=== PATIENT | female | born 1970 ===

== ENCOUNTER → 2023-02-18 10:06 | Outpatient (BNVA) | payer OTHER, SELFPAY | PROVIDERS: Visit Provider Physician Assistant ==

== ENCOUNTER → 2023-02-28 12:51 | Outpatient (BNVA) | payer OTHER, SELFPAY | PROVIDERS: PCP Family Medicine; Visit Provider Physician Assistant | DX: E66.9 Obesity, unspecified (principal); Z68.36 Body mass index [BMI] 36.0-36.9, adult; Z98.84 Bariatric surgery status | CPT/HCPCS: 99202 ==

== ENCOUNTER 2024-01-14 09:04 | Outpatient (AMB) | payer OTHER, SELFPAY ==
--- NOTE | 2024-01-14 10:55 | MHC.OFFVISWM ---
Intake VS Expanded 01/14/24 11:04 Height 5 ft 6 in Weight 234 lb BMI 37.8 Intake Visit Reasons: TV Revision SWL BMI 36.8 Allergies No Known Allergies Allergy (Verified 01/14/24 10:55) Medication List - Last Reconciled 01/14/24 by Nba Hayes MD HPI TV Revision SWL BMI 36.8 HPI Details Start time: 10.47am, End time: 11.47am ?I spent 50 minutes speaking with the patient on the phone plus an additional 10 minutes reviewing and updating records for a total of 60 minutes HPI Comments History of Present Illness Details Previous weight loss efforts: lap band ([id number] weight: 234lbs, lowest weight: 200lbs, had to remove it because of intolerance) Wakes up: 4.40am, sleeps: 9pm Breakfast: 9am (cereal and banana, or omelette Lunch: skips Dinner: 6pm (chicken salad, pizza) Snacks: 12pm (cookies, chips, crackers), 3.30pm (candy), 7pm (ice cream) Exercise: has a stationary bike Fluids: Coffee 1cup/day (creamer), tea/soda: none, juice: zero calorie juice, ETOH: none PFSH Medical History (Updated 01/14/24 @ 11:05 by Nba Hayes MD) Sleep apnea Surgical History (Updated 02/28/23 @ 13:03 by Marci Hopkins PA-C) Hx of adenoidectomy Hx of tonsillectomy Hx of unilateral oophorectomy History of removal of laparoscopic gastric banding device Hx of laparoscopic gastric banding Family History Mother Hypertension Diabetes High cholesterol Father Diabetes Brother Diabetes Brother No problems noted. Brother No problems noted. Brother No problems noted. Sister No problems noted. Sister No problems noted. Sister No problems noted. Son No problems noted. Daughter No problems noted. Social History Alcohol intake: never Patient Tobacco Use Status: Never used Tobacco Assessment & Plan Assessment & Plan (1) Obesity: Code(s): E66.9 - Obesity, unspecified Qualifiers: Obesity type: due to excess calories Obesity classification: adult class 2 (BMI 35 - 39.9) Serious obesity comorbidity presence: with serious comorbidity Body mass index: BMI 37.0-37.9 Qualified Code(s): E66.01 - Morbid (severe) obesity due to excess calories; Z68.37 - Body mass index [BMI] 37.0-37.9, adult Plan: 1.? Plan for lap sleeve gastrectomy. If diaphragmatic or ventral hernias are present at time of surgery, these will be repaired laparoscopically as well. Risks and complications were discussed in detail including possible conversion to an open procedure, anastomotic leak, bleeding requiring transfusion, small bowel obstruction, , DVT and pulmonary embolism, cardiac, or pulmonary complications, as buttermaker complications such as anastomotic ulcer, insufficient weight loss and vitamin deficiencies. I emphasized the importance of close follow-up, adherence to instructions and good communication. 2. Nutritional counseling. Start with one Isopure INFUSIONS protein (buy at [employer], [employer], [employer], [employer]) shake (HALF scoop in 8oz water) at 6am-8am, 1 protein bar (Zone Perfect protein bars, buy at [employer], [employer], [employer], or [employer]) at 9am-11am, another Isopure INFUSIONS shake (HALF scoop in 8oz water) at 12pm-2pm, another Zone Perfect protein bar at 3pm-5pm, dinner at 6pm (8 forks of protein and 8 forks of salad/vegetables) and one more protein bar after dinner at 8pm-10pm. So you do 2 protein shakes, 3 protein bars and one meal per day. Meal to include lean meat (beef, fish, pork, turkey, chicken), or ethiopian yogurt, or egg whites, or beans with a salad with olive oil and fruits (berries, pears, apples, kiwi). Avoid salt, breads, potatoes, rice, pasta, desserts. 3. Each shake would be drunk slowly, like coffee in a period of 2 hours. 4. Cut each bar in 4 pieces and eat each piece in 30min ?to make each bar last 2 hours. 5. I emphasized the importance of measuring accurately the food portion and measure it when serving the food in plate 6. The meal portions include 8 full-size forks of meat and 8 full-size forks of salad. You always eat the meat portion but you can replace up to 4 forks for salad/vegetables with rice, potatoes or pasta, or a fruit ?if you like. The less you do it the better weight loss will be. 7. One full-size fork is what it can be scooped on the fork without falling aside and not what can be bit with the fork. Use regular forks like those you find in a typical restaurant. 8.? Please send me weight measurements as soon as possible and then once a week. Always include your diet and exercise plan. 9. Start stationary bike at a resistance level of 4.0 Increase level by 1.0 every 3 min to a max level of 10.0. Stay at this level for 3 min and then return to level 4.0 and repeat same steps until 300 calories are burned. Goal is to burn 2000 calories per week on exercise, which means either 300 calories daily, or 400 calories 5 days per week, or 500 calories 4 days per week, or 650 calories 3 days per week. 10.?If you still have your period, it is important of avoiding and for at least 18 months postoperatively and has been discussed at the infosession. 11. Goal is to lose at least 1.5-2lbs per week 12. Goal to lose 10% of your weight before surgery, which is about 22lbs. Ultimate weight goal: 204lbs before surgery 13. Please follow the diet plan exactly without any change. If you don't like something about the plan or you feel hungry you need to communicate with me so I can help you revise the plan. You should not change the plan yourself. Orders: Orders Hemoglobin A1c Today E66.9 - Obesity, unspecified, G47.30 - Sleep apnea, unspecified, Z68.37 - Body mass index [BMI] 37.0-37.9, adult H Pylori Breath Test Today E66.9 - Obesity, unspecified, G47.30 - Sleep apnea, unspecified, Z68.37 - Body mass index [BMI] 37.0-37.9, adult Complete Blood Count Auto Diff Today E66.9 - Obesity, unspecified, G47.30 - Sleep apnea, unspecified, Z68.37 - Body mass index [BMI] 37.0-37.9, adult IRON PROFILE Today E66.9 - Obesity, unspecified, G47.30 - Sleep apnea, unspecified, Z68.37 - Body mass index [BMI] 37.0-37.9, adult C Reactive Protein Today E66.9 - Obesity, unspecified, G47.30 - Sleep apnea, unspecified, Z68.37 - Body mass index [BMI] 37.0-37.9, adult Vitamin B1 Today E66.9 - Obesity, unspecified, G47.30 - Sleep apnea, unspecified, Z68.37 - Body mass index [BMI] 37.0-37.9, adult Vitamin A Today E66.9 - Obesity, unspecified, G47.30 - Sleep apnea, unspecified, Z68.37 - Body mass index [BMI] 37.0-37.9, adult Vitamin D 25-OH Total Today E66.9 - Obesity, unspecified, G47.30 - Sleep apnea, unspecified, Z68.37 - Body mass index [BMI] 37.0-37.9, adult US abdomen comp w elastography Today E66.9 - Obesity, unspecified, G47.30 - Sleep apnea, unspecified, Z68.37 - Body mass index [BMI] 37.0-37.9, adult home sleep study Today E66.9 - Obesity, unspecified, G47.30 - Sleep apnea, unspecified, Z68.37 - Body mass index [BMI] 37.0-37.9, adult Insulin Today E66.9 - Obesity, unspecified, G47.30 - Sleep apnea, unspecified, Z68.37 - Body mass index [BMI] 37.0-37.9, adult Lipid Panel Today E66.9 - Obesity, unspecified, G47.30 - Sleep apnea, unspecified, Z68.37 - Body mass index [BMI] 37.0-37.9, adult Comprehensive Met. Panel Today E66.9 - Obesity, unspecified, G47.30 - Sleep apnea, unspecified, Z68.37 - Body mass index [BMI] 37.0-37.9, adult Vitamin B12 and Folate Today E66.9 - Obesity, unspecified, G47.30 - Sleep apnea, unspecified, Z68.37 - Body mass index [BMI] 37.0-37.9, adult Zinc Today E66.9 - Obesity, unspecified, G47.30 - Sleep apnea, unspecified, Z68.37 - Body mass index [BMI] 37.0-37.9, adult TSH reflex Free T4 Today E66.9 - Obesity, unspecified, G47.30 - Sleep apnea, unspecified, Z68.37 - Body mass index [BMI] 37.0-37.9, adult Ferritin Today E66.9 - Obesity, unspecified, G47.30 - Sleep apnea, unspecified, Z68.37 - Body mass index [BMI] 37.0-37.9, adult XR chest 2V Today E66.9 - Obesity, unspecified, G47.30 - Sleep apnea, unspecified, Z68.37 - Body mass index [BMI] 37.0-37.9, adult ECG 12 lead EKG Today E66.9 - Obesity, unspecified, G47.30 - Sleep apnea, unspecified, Z68.37 - Body mass index [BMI] 37.0-37.9, adult FL upper GI w air Today E66.9 - Obesity, unspecified, G47.30 - Sleep apnea, unspecified, Z68.37 - Body mass index [BMI] 37.0-37.9, adult Referrals Nutrition/Dietitian Referral E66.9 - Obesity, unspecified, G47.30 - Sleep apnea, unspecified, Z68.37 - Body mass index [BMI] 37.0-37.9, adult Behavioral Health Referral E66.9 - Obesity, unspecified, G47.30 - Sleep apnea, unspecified, Z68.37 - Body mass index [BMI] 37.0-37.9, adult Telehealth Telehealth Location of provider rendering services: practice address Location of patient: address on file Patient Identification confirmed using: Name, : Yes Telehealth method: voice only Patient verbally consented to treatment: Yes Patient verbally consented to billing insurance company: Yes Patient informed of any privacy concerns related to visit: Yes Minutes spent on Phone/Video with Pt.: 60 Coding Level of Care Code Tele [facility] Pt Level 5 (20412) Diagnoses Class 2 severe obesity due to excess calories with serious comorbidity and body mass index (BMI) of 37.0 to 37.9 in adult E66.01; Z68.37 Obesity type: due to excess calories Obesity classification: adult class 2 (BMI 35 - 39.9) Serious obesity comorbidity presence: with serious comorbidity Body mass index: BMI 37.0-37.9 Time Spent (min) 60
[2024-01-14 11:04] VITALS: BMI 37.8
== END 2024-01-14 11:48 | disposition home or self-care (01) ==
LOC: HO.HBS 09:04
PROVIDERS: PCP Family Medicine; Visit Provider Surgery
DX: E66.01 Morbid (severe) obesity due to excess calories (principal); Z68.37 Body mass index [BMI] 37.0-37.9, adult
CPT/HCPCS: 99205

== ENCOUNTER → 2024-01-14 09:04 | Outpatient (BNVA) | payer OTHER, SELFPAY | PROVIDERS: PCP Family Medicine; Visit Provider Surgery ==

== ENCOUNTER 2024-01-15 09:46 | Outpatient (REF) | payer OTHER, SELFPAY ==
--- NOTE | ~2024-01-15 | XR_ITS ---
EXAMINATION: XR CHEST CLINICAL INFORMATION: Obesity. COMPARISON: None available. TECHNIQUE: 2 views of the chest were obtained. FINDINGS: There is no gross pneumothorax. Heart size is normal. Lung volumes are low. No pleural effusion. No focal consolidation to suggest pneumonia. Mild degenerative changes in the thoracic spine. XR/XR chest 2V IMPRESSION: No evidence of pneumonia.
--- NOTE | 2024-01-15 09:57 | ECG_ITS ---
Test Reason : OBESITY Blood Pressure : / mmHG Vent. Rate : 060 BPM Atrial Rate : 060 BPM P-R Int : 124 ms QRS Dur : 082 ms QT Int : 432 ms P-R-T Axes : 072 003 007 degrees QTc Int : 432 ms Normal sinus rhythm Minimal voltage criteria for LVH, may be normal variant ( R in aVL ) Borderline ECG No previous ECGs available Referred By: Nba Hayes Electronically Signed By:YONATAN STARK MD
[2024-01-15 10:20] LABS: MANUAL DIFF FLAG NO
[2024-01-15 10:31] LABS: Basophils Percent Auto 0.7 % (0-2); Eosinophils Absolute Auto 0.3 X10*3/uL (0.0-0.4); Eosinophils Percent Auto 5.9 % (0-4); Hematocrit 43.7 % (37.0-47.0); Hemoglobin 14.4 g/dl (12.0-16.0); Imm Gran Abs Auto 0.02 X10*3/uL (0.00-0.03); Imm Gran Pct Auto 0.3 % (0.0-0.4); Lymphocytes Absolute Auto 1.9 X10*3/uL (1.2-4.9); Lymphocytes Percent Auto 33.4 % (20-40); Mean Corpuscular Hemoglobin 30.5 pg (27.0-33.0); Mean Corpuscular Volume 92.6 fL (80.0-98.0); Mean Platelet Volume 10.6 fL (9.4-12.3); Monocytes Absolute Auto 0.5 X10*3/uL (0.1-1.2); Monocytes Percent Auto 7.8 % (2-11); Neutrophils Percent Auto 51.9 % (45-73); Platelet Count 289 X10*3/uL (160-400); Red Blood Count 4.72 X10*6/uL (4.20-5.50); Red Cell Distribution Width 12.5 % (11.0-16.0); White Blood Count 5.8 X10*3/uL (4.8-10.8)
[2024-01-15 11:15] LABS: Alanine Aminotransferase 23 U/L (0-31); Albumin Level 4.2 g/dL (3.5-5.0); Alkaline Phosphatase 64 U/L (39-117); Anion Gap 10 (12-20); Aspartate Amino Transferase 18 U/L (5-31); Bilirubin Total 0.5 mg/dL (0.0-1.0); Blood Urea Nitrogen 12 mg/dL (9-16); C Reactive Protein 0.31 mg/dL (< or = 0.50); Calcium 9.6 mg/dL (8.4-10.2); Carbon Dioxide 29 mmol/L (22-29); Chloride 107 mmol/L (96-108); Cholesterol 226 mg/dL (<200); Estimated Glomerular Filt Rate > 60; Glucose Random 101 mg/dL (60-115); HDL Cholesterol 60 mg/dL (>40); Iron 99 mcg/dL (30-160); LDL Cholesterol Calculated 137 mg/dL (<100); Percent Iron Saturation 29 % (15-50); Potassium 4.2 mmol/L (3.3-5.1); Sodium 142 mmol/L (135-145); Total Iron Binding Capacity 341 mcg/dL (228-428); Total Protein 7.5 g/dL (6.5-8.0); Triglycerides 145 mg/dL (<150); Unsaturated Iron Binding 242 ug/dL
[2024-01-15 11:19] LABS: Estimated Average Glucose 114 mg/dL; Hemoglobin A1c % 5.6 % (<6.0)
[2024-01-15 11:42] LABS: Ferritin 27 ng/mL (10-250); Insulin 12 uU/mL (2-29); TSH reflex Free T4 2.11 uIU/mL (0.32-4.0); Vitamin D 25-OH Total 16.7 ng/mL (>30)
[2024-01-15 12:29] LABS: Folate 10.9 ng/mL (> or = 4.0); Vitamin B12 670 pg/mL (200-900)
[2024-01-17 18:07] LABS: Zinc 80 mcg/dL (60-130)
[2024-01-21 01:43] LABS: Vitamin A 56 mcg/dL (38-98)
[2024-01-21 15:38] LABS: Vitamin B1 13 nmol/L (8-30)
== END 2024-01-15 09:47 | disposition home or self-care (01) ==
LOC: HO.XRAY 09:46
PROVIDERS: PCP Family Medicine; Visit Provider Surgery
DX: E66.9 Obesity, unspecified (principal); Z68.37 Body mass index [BMI] 37.0-37.9, adult; G47.30 Sleep apnea, unspecified
CPT/HCPCS: 36415; 71046; 80053; 80061; 82306; 82607; 82728; 82746; 83036; 83525; 83540; 84425; 84443; 84590; 84630; 85025; 86140; 93005

== ENCOUNTER → 2024-01-15 09:57 | Outpatient (BNV) | payer OTHER, SELFPAY | PROVIDERS: PCP Family Medicine; Visit Provider Internal Medicine Cardiovascular Disease | DX: E66.9 Obesity, unspecified (principal); R94.31 Abnormal electrocardiogram [ECG] [EKG] | CPT/HCPCS: 93010 ==

== ENCOUNTER → 2024-01-16 09:37 | Outpatient (BNVA) | payer OTHER, SELFPAY | PROVIDERS: PCP Family Medicine; Visit Provider Physician Assistant Surgical ==

== ENCOUNTER 2024-01-19 10:22 | Outpatient (AMB) | payer OTHER, SELFPAY ==
--- NOTE | 2024-01-19 10:20 | MHC.WMTHER ---
Intake Intake Visit Reasons: VIDEO Intake Allergies No Known Allergies Allergy (Verified 01/14/24 10:55) [facility] Medical History (Updated 01/19/24 @ 10:43 by Kathy Vega) Sleep apnea Surgical History (Updated 02/28/23 @ 13:03 by Marci Hopkins PA-C) Hx of adenoidectomy Hx of tonsillectomy Hx of unilateral oophorectomy History of removal of laparoscopic gastric banding device Hx of laparoscopic gastric banding Family History Mother Hypertension Diabetes High cholesterol Father Diabetes Brother Diabetes Brother No problems noted. Brother No problems noted. Brother No problems noted. Sister No problems noted. Sister No problems noted. Sister No problems noted. Son No problems noted. Daughter No problems noted. Social History Alcohol intake: never Patient Tobacco Use Status: Never used Tobacco Behavioral Health Assessment Weight Management Therapy Therapy Notes Details Pt is looking to have weight loss surgery to help improve her health and quality of life. Pt is not in therapy and has never been. She has no mental health history and no history of problems with drugs or alcohol. Presenting Concerns Referral Source provider Reason for referral weight loss surgery evaluation Precipitating Event obesity Living Situation Current Living Situation Own At risk of losing current housing? No Satisfied with current living situation? Yes Comments Pt lives with her and two children. Food/Weight/Diet Expectations of change weight loss and maintenance History/Relationship with food Pt stated that she would eat eggs, wallace, toast, sedentary job, napping, snacking throughout the day, skipping lunch, then would eat large salad with crispy chicken on it and lots of other toppings then snack into the night. Weekends would be take out, pizza, Spanish food, [place] food etc, no discipline. History/Relationship with weight Patient reported that she was thin until she had her daughter 20 years ago. Her weight would fluctuate since then. History/Relationship with dieting 2010 lap band and removed in 2017 lost 35-40lbs, WW, Ozempic Binge Eating Do you frequently eat large amounts of food in short periods of time, not feeling physically hungry? Yes Do you feel out of control when you eat a large amount of food in a short period of time? No Do you eat large amounts of food rapidly and typically alone? No Night Eating Do you wake up at least once during the night to eat? No If you wake up in the night, do you find that it is necessary to eat something in order to fall back asleep? No Do you have little or no appetite in the morning and feel very hungry in the evening, often overeating between dinner and when you go to bed? No Social History Family history and relationship She has 4 brothers and one sister. Two brothers have had weight loss surgery. Pt is and has two children. Parental/Familial geodetic technician obligations family Developmental history and status no issues reported Social support , daughter, niece (neighbor), brother is also having surgery with the program at [facility]. Buddhism/Spirituality Denominational Cultural/Ethnic information Legal Involvement and History Current or historical involvement with the legal system? none Education Highest grade completed 10th grade Preferred learning style Auditory, Verbal, Written, Learn by doing and Visual Currently enrolled in educational program? No Interested in further educational program? 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 No Meaningful activities housework, outdoor gardening Financial Situation Describe current financial situation Comfortable Financial assistance? None Service Service? No Mental Health and Addiction Treatment Current/Past substance abuse? No Current/Past addictive behavior concerns? No Medical and Physical Health Summary Physical exam in the last year? Yes Pain Screening Current pain? No Pain in the last few months? No Medications Is the patient compliant with medications? Yes Does the patient have Go Guardian in place? Not applicable Does the patient use complimentary health approaches? No Trauma/Abuse History History of trauma? No Questionnaires PHQ-9 Over the last 2 weeks, how often have you been bothered by any of the following problems? 1. Little interest or pleasure in doing things: several days 2. Feeling down, depressed, or hopeless: not at all 3. Trouble falling or staying asleep, or sleeping too much: nearly every day 4. Feeling tired or having little energy: nearly every day 5. Poor appetite or overeating: nearly every day 6. Feeling bad about yourself - or that you are a failure or have let yourself or your family down: not at all 7. Trouble concentrating on things, such as reading the newspaper or watching television: not at all 8. Moving or speaking so slowly that other people could have noticed. Or the opposite - being so fidgety or restless that you have been moving around a lot more than usual: not at all 9. Thoughts that you would be better off or of hurting yourself in some way: not at all Total score: 10 Source: Developed by Drs. Anthony Briggs, aMricarmen Carroll, Ruddy Montague and colleagues, with an educational karthik from [employer]. Binge Eating Scale Group 1 A. I don't feel self-conscious about my wt. or body size when I'm with others. B. I feel concerned about how I look to others, but it normally does not make me fell disappointed with myself C. I do get self-conscious about my appearance and wt. which makes me feel disappointed in myself. D. I feel very self-conscious about my wt. and frequently I feel intense shame and disgust for myself. I try to avoid social contacts because of my self-consciousness. Response Group 1: C Group 2 A. I don't have any difficulty eating slowly in the proper manner. B. Although I seem to gobble down foods, I don't end up feeling stuffed because of eating to much. C. At times, I tend to eat quickly and then, I feel uncomfortably full afterwards. D. I have the habit of bolting down my food, without really chewing it. When this happens I usually feel uncomfortably stuffed because I've eaten to much. Response Group 2: A Group 3 A. I feel capable to control my eating urges when I want to. B. I feel like I have failed to control my eating more than the average person. C. I feel utterly helpless when it comes to feeling in control of my eating urges. D. Because I feel so helpless about controlling my eating I have become very desperate about trying to get control. Response Group 3: B Group 4 A. I don't have the habit of eating when I'm bored. B. I sometimes eat when I'm bored, but often I'm able to get busy and get my mind off food. C. I have a regular habit of eating when I'm bored, but occasionally, I can use some other activity to get my mind off eating. D. I have a strong habit of eating when I'm bored. Nothing seems to help me breath the habit. Response Group 4: C Group 5 A. I'm usually physically hungry when I eat something. B. Occasionally, I eat something on impulse even though I really am not hungry. C. I have the regular habit of eating foods, that I might not really enjoy, to satisfy a hungry feeling even though physically, I don't need the food. D. Although I'm not physically hungry, I get a hungry feeling in my mouth that only seems to be satisfied when I eat a food, like sandwich, that fills my mouth. Sometimes, when I eat the food to satisfy my mouth hunger, I then spit the food out so I won't gain weight. Response Group 5: B Group 6 A. I don't feel any guilt or self-hate after I overeat. B. After I overeat, occasionally I feel guilt or self-hate. C. Almost all the time I experience strong guilt or self-hate after I overeat. Response Group 6: B Group 7 A. I don't lose total control of my eating when dieting even after periods when I overeat. B. Sometimes when I eat a forbidden food on a diet, I feel like I blew it and eat even more. C. Frequently, I have the habit of saying to myself, I've blown it now, why not go all the way, when I overeat on a diet. When that happens I eat more. D. I have a regular habit of starting a strict diets for myself but I break the diets by going on an eating binge. My life seems to be either a feast or famine. Response Group 7: B Group 8 A. I rarely eat so much food that I feel uncomfortably stuffed afterwards. B. Usually about once a month, I each such a quantity of food, I end up feeling very stuffed. C. I have regular periods during the month when I eat large amounts of food, either at mealtime or at snacks. D. I eat so much food that I regularly feel quite uncomfortable after eating and sometimes a bit nauseous. Response Group 8: B Group 9 A. My level of calorie intake does not go up very high or go down very low on a regular basis. B. Sometimes after I overeat, I will try to reduce my caloric intake to almost nothing to compensate for the excess calories I've eaten. C. I have a regular habit of overeating during the night. It seems that my routine is not to be hungry in the morning but overeat in the evening. D. In my adult years, I have had week-long periods where I practically starve myself. This follows periods when I overeat. It seems I live a life of either feast or famine. Response Group 9: A Group 10 A. I usually am able to stop eating when I want to. I know when enough is enough. B. Every so often, I experience a compulsion to eat which I can't seem to control. C. Frequently, I experience strong urges to eat which I seem unable to control, but at other times I can control my eating urges. D. I feel incapable of controlling urges to eat. I have a fear of not being able to stop eating voluntarily. Response Group 10: A Group 11 A. I don't have any problem stopping eating when I feel full. B. I usually can stop eating when I feel full but occasionally overeat leaving me feeling uncomfortably stuffed. C. I have a problem stopping eating once I start and usually I feel uncomfortably stuffed after I eat a meal. D. Because I have a problem not being able to stop eating when I want, I sometimes have to induce vomiting to relieve my stuffed feeling. Response Group 11: B Group 12 A. I seem to eat just as much when I'm with others, Family social gatherings as when I'm by myself. B. Sometimes, when I'm with other persons, I don't eat as much as I want to eat because I'm self-conscious about my eating. C. Frequently, I eat only a small amount of food when others are present, because I'm very embarrassed about my eating. D. I feel so ashamed about overeating that I pick times to overeat when I know no one will see me. I feel like a closet eater. Response Group 12: A Group 13 A. I eat three meals a day with only an occasional between meal snack. B. I eat 3 meals a day, but I also normally snack between meals. C. When I am snacking heavily, I get in the habit of skipping regular meals. D. There are regular periods when I seem to be continually eating, with no planned meals. Response Group 13: C Group 14 A. I don't think much about trying to control unwanted eating urges. B. At least some of the time, I feel my thoughts are pre-occupied with trying to control my eating urges. C. I feel that frequently I spend much time thinking about how much I ate or about trying not to eat anymore. D. It seems to me that most of my waking hours are pre-occupied by thoughts about eating or not eating. I feel like I'm constantly struggling not to eat. Response Group 14: A Group 15 A. I don't think about food a great deal. B. I have strong craving for food but they last only for brief periods of time. C. I have days when I can't seem to think about anything else but food. D. Most of my days seem to be pre-occupied with thoughts about food. I feel like I live to eat. Response Group 15: A Group 16 A. I usually know whether or not I'm physically hungry. I take the right portion of food to satisfy me. B. Occasionally, I feel uncertain about knowing whether or not I'm physically hungry. A these times it's hard to know how much food I should take to satisfy me. C. Even though I might know how many calories I should eat, I don't have any idea what is a normal amount of food for me. Response Group 16: A Binge Eating Score: 12 Score less than 17 Minimal Risk Score between 18-26 Moderate Risk Score between 27-46 High Risk Assessment & Plan Assessment & Plan (1) Adjustment disorder, unspecified: Code(s): F43.20 - Adjustment disorder, unspecified (2) Obesity: Code(s): E66.9 - Obesity, unspecified Qualifiers: Obesity type: due to excess calories Obesity classification: adult class 2 (BMI 35 - 39.9) Serious obesity comorbidity presence: with serious comorbidity Body mass index: BMI 37.0-37.9 Qualified Code(s): E66.01 - Morbid (severe) obesity due to excess calories; Z68.37 - Body mass index [BMI] 37.0-37.9, adult Plan Patient has no mental health history or serious barriers. She is cleared for surgery when ready. Telehealth Telehealth Location of provider rendering services: practice address Location of patient: address on file Patient Identification confirmed using: Name, : Yes Telehealth method: voice only Patient verbally consented to treatment: Yes Patient verbally consented to billing insurance company: Yes Patient informed of any privacy concerns related to visit: Yes Minutes spent on Phone/Video with Pt.: 45 Coding Level of Care Code Tele Psy Diag Eval (75025) Diagnoses Adjustment disorder, unspecified F43.20 Class 2 severe obesity due to excess calories with serious comorbidity and body mass index (BMI) of 37.0 to 37.9 in adult E66.01; Z68.37 Obesity type: due to excess calories Obesity classification: adult class 2 (BMI 35 - 39.9) Serious obesity comorbidity presence: with serious comorbidity Body mass index: BMI 37.0-37.9 Time Spent (min) 45
== END 2024-01-19 10:54 | disposition home or self-care (01) ==
LOC: HO.HBST 10:22
PROVIDERS: PCP Family Medicine; Visit Provider Counselor Mental Health
DX: F43.20 Adjustment disorder, unspecified (principal); E66.01 Morbid (severe) obesity due to excess calories; Z68.37 Body mass index [BMI] 37.0-37.9, adult
CPT/HCPCS: 90791

== ENCOUNTER → 2024-01-19 10:22 | Outpatient (BNVA) | payer OTHER, SELFPAY | PROVIDERS: PCP Family Medicine; Visit Provider Counselor Mental Health ==

== ENCOUNTER → 2024-01-20 09:51 | Outpatient (REF) | payer OTHER, SELFPAY | LOC: HO.SL 09:51 | PROVIDERS: PCP Family Medicine; Visit Provider Surgery | DX: E66.9 Obesity, unspecified (principal); G47.33 Obstructive sleep apnea (adult) (pediatric) | CPT/HCPCS: 95806 ==

== ENCOUNTER → 2024-01-20 10:12 | Outpatient (BNV) | payer OTHER, SELFPAY | PROVIDERS: PCP Family Medicine; Visit Provider Internal Medicine | DX: G47.33 Obstructive sleep apnea (adult) (pediatric) (principal) | CPT/HCPCS: 95806 ==

== ENCOUNTER 2024-01-27 10:48 | Outpatient (AMB) | payer OTHER, SELFPAY ==
--- NOTE | 2024-01-27 10:14 | MHC.AMNUTRGE ---
Intake Intake Visit Reasons: VIDEO Initial Nutrition [facility] [place] Required: No Allergies No Known Allergies Allergy (Verified 01/14/24 10:55) HPI Nutrition Presentation Details Band 2019 [facility], removed 4 years ago by Yluia Reason for consult elevated BMI Diet Assmnt Details She reports her nutrition plan from Dr. Hayes is going well. She does not ahve any questions or concerns today. Her brother just had LSG with us last week. Has an older brother who had bariatric surgery at [facility]. She reports its been very helpful to watch their journeys and experiences. Exercise: Has been working out at night in the evenings right before dinner. [facility] online classes: completed, scored well, reviewed today Dietary counseling reduction Who buys your food self Who prepares/cooks your food self Meal frequency regular: lunch Lifestyle Eating out 1-3 times/week (mainly weekends) Food frequency Fruit: daily, Vegetables: daily, Grains/pasta/breads/cereal (carbs): daily, Meats/poultry/fish (protein): daily, Restaurants/fast foods: several times weekly, Water: daily, Soda: daily (fresca), Juice: daily and Coffee: daily Diagnosis Nutrition problem #1 overweight/obesity As related to (etiology) #1 excess energy intake and physical inactivity As evidenced by (sign/symptom) #1 high BMI Monitoring/Goals Nutrition problem monitoring total energy intake, level of knowledge/skill, total PRO intake, total CHO intake and weight Outcome progress progressing Learning/Education Readiness to learn good Stages of change action Educational materials provided Yes Most Recent Diabetes Results: Cholesterol 226 mg/dL (<200) H 01/15/24 HDL Cholesterol 60 mg/dL (>40) 01/15/24 Triglycerides 145 mg/dL (<150) 01/15/24 Creatinine 0.96 mg/dL (0.5-1.4) 01/15/24 Blood Urea Nitrogen 12 mg/dL (9-16) 01/15/24 Sodium 142 mmol/L (135-145) 01/15/24 Potassium 4.2 mmol/L (3.3-5.1) 01/15/24 Chloride 107 mmol/L (96-108) 01/15/24 Carbon Dioxide 29 mmol/L (22-29) 01/15/24 Calcium 9.6 mg/dL (8.4-10.2) 01/15/24 AST 18 U/L (5-31) 01/15/24 ALT 23 U/L (0-31) 01/15/24 Total Protein 7.5 g/dL (6.5-8.0) 01/15/24 Albumin 4.2 g/dL (3.5-5.0) 01/15/24 PFSH Medical History (Updated 01/19/24 @ 20:23 by Nba Hayes MD) Sleep apnea Surgical History (Updated 02/28/23 @ 13:03 by Marci Hopkins PA-C) Hx of adenoidectomy Hx of tonsillectomy Hx of unilateral oophorectomy History of removal of laparoscopic gastric banding device Hx of laparoscopic gastric banding Family History Mother Hypertension Diabetes High cholesterol Father Diabetes Brother Diabetes Brother No problems noted. Brother No problems noted. Brother No problems noted. Sister No problems noted. Sister No problems noted. Sister No problems noted. Son No problems noted. Daughter No problems noted. Social History Alcohol intake: never Patient Tobacco Use Status: Never used Tobacco Use of substances other than those prescribed or required for medical reasons: No Are you DNR?: No Advance Directives: No Advance Directives Information Provided: Yes Assessment & Plan Assessment & Plan (1) BMI 37.0-37.9, adult: Code(s): Z68.37 - Body mass index [BMI] 37.0-37.9, adult Plan Patient is cleared from a nutrition standpoint for bariatric surgery. Educational requirements have been completed. Reviewed vitamin supplementation and commitment to protein shake for several months post surgery. Encouraged communication with office as needed Telehealth Telehealth Location of provider rendering services: practice address Location of patient: address on file Patient Identification confirmed using: Name, : Yes Telehealth method: voice only Patient verbally consented to treatment: Yes Patient verbally consented to billing insurance company: Yes Patient informed of any privacy concerns related to visit: Yes Minutes spent on Phone/Video with Pt.: 30 Coding Level of Care Code Nutr Indiv Intake (15875) Diagnoses BMI 37.0-37.9, adult Z68.37 Time Spent (min) 30
== END 2024-01-27 15:16 | disposition home or self-care (01) ==
LOC: HO.HBS 10:48
PROVIDERS: PCP Family Medicine; Visit Provider Dietitian, Registered
DX: Z68.37 Body mass index [BMI] 37.0-37.9, adult (principal)

== ENCOUNTER → 2024-01-27 10:48 | Outpatient (BNVA) | payer OTHER, SELFPAY | PROVIDERS: PCP Family Medicine; Visit Provider Dietitian, Registered | DX: E66.9 Obesity, unspecified (principal); Z71.3 Dietary counseling and surveillance; Z68.37 Body mass index [BMI] 37.0-37.9, adult | CPT/HCPCS: 97802 ==

== ENCOUNTER 2024-01-28 07:12 | Day surgery (SDC) | payer OTHER, SELFPAY ==
[2024-01-28 10:25] VITALS: BMI 37.6
[2024-01-28 10:30] VITALS: BP 112/61; PULSE 67; RESP 16; TEMP 37.2; O2SAT 97
--- NOTE | 2024-01-28 10:31 | HO.ANESPROP2 ---
[facility] Active Problems Active Problems: All Active Problems (Updated 01/19/24 @ 20:23 by Nba Hayes MD) Vitamin D deficiency (Acute) Adjustment disorder, unspecified (Acute) Sleep apnea (Acute) BMI 37.0-37.9, adult (Acute) History of removal of laparoscopic gastric banding device (Acute) Obesity (Acute) Past Medical History Medical History (Updated 01/19/24 @ 20:23 by Nba Hayes MD) Sleep apnea Family History Family History Mother Hypertension Diabetes High cholesterol Father Diabetes Brother Diabetes Brother No problems noted. Brother No problems noted. Brother No problems noted. Sister No problems noted. Sister No problems noted. Sister No problems noted. Son No problems noted. Daughter No problems noted. Family history of problems with anesthesia: No Surgical History Surgical History (Updated 02/28/23 @ 13:03 by Marci Hopkins PA-C) Hx of adenoidectomy Hx of tonsillectomy Hx of unilateral oophorectomy History of removal of laparoscopic gastric banding device Hx of laparoscopic gastric banding History of Problems with Anesthesia: No Social History Social History Alcohol intake: never Patient Tobacco Use Status: Never used Tobacco Use of substances other than those prescribed or required for medical reasons: No Are you DNR?: No Advance Directives: No Advance Directives Information Provided: Yes Meds Allergies Allergy/AdvReac Type Severity Reaction Status Date / Time No Known Allergies Allergy Verified 01/14/24 10:55 Active Medications: Current Medications Lactated Ringer's (Lr) 1,000 mls @ 80 mls/hr IVCONT .[id number] DARRELL Exam Height,Weight and Vital Signs: Height 5 ft 6 in Weight 105.8 kg Airway Mallampati Class: II TM Dist: >3cm Neck ROM: Full Heart: rrr Lungs: cta Assessment and Plan Assessment Anesthesia Assessment: Anesthesia Plan Discussed and Chart Reviewed Final Anesthetic Review Family History of Problems with Anesthesia: No History of Problems with Anesthesia: No NPO: Yes ASA Class: II Final Preanesthetic Review: No Changes in Pt Med Stat, Meds/Allgs Chart Reviewed and Consent Obtained/Reviewed Patient Risk: Low Procedure Risk: Intermediate Anesthetic Plan Anesthetic Plan: MAC: Disposition: Standard PACU
[2024-01-28] MEDS: Lactated Ringers 1,000 ML 80 ML IVCONT (10:42)
--- NOTE | 2024-01-28 11:02 | HO.ANESPROP2 ---
[facility], [facility] Active Problems Active Problems: All Active Problems (Updated 01/19/24 @ 20:23 by Nba Hayes MD) Vitamin D deficiency (Acute) Adjustment disorder, unspecified (Acute) Sleep apnea (Acute) BMI 37.0-37.9, adult (Acute) History of removal of laparoscopic gastric banding device (Acute) Obesity (Acute) Past Medical History Medical History (Updated 01/19/24 @ 20:23 by Nba Hayes MD) Sleep apnea Family History Family History Mother Hypertension Diabetes High cholesterol Father Diabetes Brother Diabetes Brother No problems noted. Brother No problems noted. Brother No problems noted. Sister No problems noted. Sister No problems noted. Sister No problems noted. Son No problems noted. Daughter No problems noted. Family history of problems with anesthesia: No Surgical History Surgical History (Updated 02/28/23 @ 13:03 by Marci Hopkins PA-C) Hx of adenoidectomy Hx of tonsillectomy Hx of unilateral oophorectomy History of removal of laparoscopic gastric banding device Hx of laparoscopic gastric banding History of Problems with Anesthesia: No Social History Social History Alcohol intake: never Patient Tobacco Use Status: Never used Tobacco Use of substances other than those prescribed or required for medical reasons: No Are you DNR?: No Advance Directives: No Advance Directives Information Provided: Yes Meds Allergies Allergy/AdvReac Type Severity Reaction Status Date / Time No Known Allergies Allergy Verified 01/14/24 10:55 Active Medications: Current Medications Lactated Ringer's (Lr) 1,000 mls @ 80 mls/hr IVCONT .[id number] DARRELL Last Admin: 01/28/24 10:42 Dose: 80 mls/hr Exam Height,Weight and Vital Signs: Height 5 ft 6 in Weight 105.8 kg Last Vital Signs Temp 99.0 F 01/28/24 10:30 Pulse 67 01/28/24 10:30 Resp 16 01/28/24 10:30 BP 112/61 01/28/24 10:30 Pulse Ox 97 01/28/24 10:30 O2 Del Method Room Air 01/28/24 10:30 Airway Mallampati Class: II TM Dist: >3cm Neck ROM: Full Heart: rrr Lungs: cta Assessment and Plan Assessment Anesthesia Assessment: Anesthesia Plan Discussed and Chart Reviewed Final Anesthetic Review Family History of Problems with Anesthesia: No History of Problems with Anesthesia: No NPO: Yes ASA Class: II Final Preanesthetic Review: No Changes in Pt Med Stat, Meds/Allgs Chart Reviewed and Consent Obtained/Reviewed Patient Risk: Low Procedure Risk: Intermediate Anesthetic Plan Anesthetic Plan: MAC: Disposition: Standard PACU
--- NOTE | 2024-01-28 11:26 | MHC.SHP ---
Pre-Procedural Eval Section A - 24 Hr Update-Section A only Date of Service: 01/28/24 The patient is an INPATIENT: No The patient has been examined within 24 hours of the surgical procedure. The History & Physical has been completed within 30 days and I have reviewed it.: Yes Section B - Complete if H&P > 30 days Chief Complaint: Morbid (severe) obesity due to excess calories Details of Present Illness: GERD Relevant Family History (Specify if Yes): No Relevant Social History: None Present Medications: None Medical History: No relevant PMH History of Previous Operations: Relevant previous surgery/procedure and date(s) (lap gastric band and removal) Allergies: Allergies Allergy/AdvReac Type Severity Reaction Status Date / Time No Known Allergies Allergy Verified 01/14/24 10:55 Review of Systems Sugical H&P ROS: Negative: Constitution, Cardiovascular, Respiratory, Neurological, Psychiatric, Hem-Onc, Allergic/Immunologic, Gastrointestinal, Genitourinary, Musculoskeletal, Integumentary, Endocrine and Eyes/Ears/Nose/Throat Exam Surgical H&P Exam: Normal: HEENT, Normal: Heart, Normal: Lungs, Normal: Extremities, Normal: Abdomen, Normal: Skin and Normal: Neurological Plan Diagnosis/Plan: Unchanged (EGD to assess etiology of GERD. Risks of bleeding and perforation were discussed with the patient and she is in agreement with the plan.) I have reviewed the history and physical and performed a pertinent physical examination on my patient. No changes have occurred unless specified. Time Spent With Patient Time: Total time managing care of this patient today ____ minutes.
--- NOTE | 2024-01-28 11:32 | P.BOP_ITS ---
Brief Operative Note Date of Service: 01/28/24 Pre-op diagnosis: GERD Post-op diagnosis: same Procedure: PROCEDURE DATE: 01/28/2024 PREOPERATIVE DIAGNOSIS: GERD POSTOPERATIVE DIAGNOSIS: ?Same as above. 1) moderate-size hiatal hernia PROCEDURE: Iebfaxqo-kjfnlv-eljxvcyvsasm with biopsies Surgeon: ?Floyd Hayes M.D.. Ph.D. Instructional Support Specialist: None ? Anesthesia: IV sedation Estimated blood loss: ?Minimal FINDINGS AND PROCEDURE: ? OPERATIVE INDICATIONS: ?The patient is a 53 year old female known to me who is interested in bariatric surgery. The patient has GERD. Additionally she had a laparoscopic gastric band placed. Based on this information I recommended an upper endoscopy to evaluate the patient's symptoms. Risks and complications of the surgery were discussed with the patient in advance particularly the possibility of perforation or bleeding that may require surgical intervention. The patient understood the risks and was in agreement with the plan. ? PROCEDURE: After informed consent was obtained by the patient, the patient was ?transferred to the Operating Room and was placed in the supine position.? After successful induction of IV sedation, a mouth block was inserted and the patient was placed in the left lateral decubitus position. An upper endoscopy was performed next, the oropharynx and esophagus appeared within the normal limits. There was a moderate-size 4-5cm hiatal hernia. The z-line was smooth. Two biopsies were obtained from the distal esophagus 2-3 cm proximal to the GE junction and two additional biopsies from the GE junction. The stomach was entered and it appeared to be of normal size. There was no gastritis. There was no stricture or ulcer. A biopsy was obtained from the fundus and the antrum. No significant bleeding was noted from any of the biopsy sites. Retroflexion of the scope confirmed the presence of a moderate size diaphragmatic hernia. The scope was then advanced into the duodenum which appeared to be normal as well. At that point the duodenum ?and the stomach were decompressed and the scope was withdrawn from the patient's mouth. The patient extubated and was transferred in stable condition to the Recovery Room for further care. I was present and performed all steps of the procedure. There were no residents to assist with this case. Floyd Hayes M.D., Ph.D. Surgeon: Nba Hayes MD Anesthesia: GETA Was an Instructional Support Specialist used for this Procedure?: No Estimated blood loss (mL): 0 IV fluids (mL): 400 Urine output (mL): 0 (No Chadwick to record output) Pathology: other (1) antrum x1, 2) fundus x1, 3) GE junction x2, 4) distal esophagus x2) Condition: stable Disposition: PACU
[2024-01-28 11:50] VITALS: BP 99/45; PULSE 82; RESP 16; TEMP 37; O2SAT 90
[2024-01-28 12:22] VITALS: BP 118/65; PULSE 67; RESP 18; TEMP 36.7; O2SAT 96
== END 2024-01-28 13:00 | disposition home or self-care (01) ==
PROVIDERS: PCP Family Medicine; Visit Provider Surgery
PROC: 0DJ08ZZ Inspection of Upper Intestinal Tract, Via Natural or Artificial Opening Endoscopic (ICD-10-PCS; CPT 43235; principal; 2024-01-28 11:30)
DX: K21.9 Gastro-esophageal reflux disease without esophagitis (principal); E66.01 Morbid (severe) obesity due to excess calories; Z68.37 Body mass index [BMI] 37.0-37.9, adult; Z98.84 Bariatric surgery status; K44.9 Diaphragmatic hernia without obstruction or gangrene; G47.30 Sleep apnea, unspecified
CPT/HCPCS: 43239; 88305; 88313; 88342; J2704

== ENCOUNTER → 2024-01-28 07:12 | Outpatient (BNV) | payer OTHER, SELFPAY | PROVIDERS: PCP Family Medicine; Visit Provider Surgery | DX: K21.9 Gastro-esophageal reflux disease without esophagitis (principal) | CPT/HCPCS: 43239 ==

== ENCOUNTER 2024-01-30 10:32 | Outpatient (REF) | payer OTHER, SELFPAY ==
--- NOTE | ~2024-01-30 | US_ITS ---
EXAMINATION: US COMPLETE ABDOMEN WITH LIVER ELASTOGRAPHY CLINICAL INFORMATION: Obesity. COMPARISON: None available. TECHNIQUE: Real-time imaging of the abdominal viscera. Noninvasive ultrasound liver fibrosis assessment is performed using Toan ElastPQ point quantification shear wave elastography (2D-SWE) with a C5-2 MHz transducer. Multiple elastography samples are obtained. FINDINGS: PANCREAS: Limited. The visualized pancreatic head and body are normal in appearance. The remainder of the pancreas is obscured from visualization by the overlying bowel gas. ABDOMINAL AORTA: The proximal, middle, and distal aortic segments are normal in caliber. INFERIOR VENA CAVA: Visualized portions are normal. LIVER: The liver demonstrates normal size, contour and increased echogenicity. No focal lesion or intrahepatic biliary duct dilatation. The right lobe measures 15.5 cm in length. The left lobe measures 7.4 cm in length. Portal flow is towards the liver (hepatopetal). Shear wave liver elastography median stiffness is 1.15 m/s (reference: normal median stiffness is 1.3 m/s or less). IQR/median stiffness to assess sampling precision is 0.09 (reference: good quality data set is IQR/median stiffness of 0.15 or less). GALLBLADDER: Normal. The gallbladder is physiologically distended without evidence of stones, sludge, polyps, wall thickening or pericholecystic fluid. COMMON BILE DUCT: Normal in caliber measuring 0.5 cm in diameter. RIGHT KIDNEY: Normal. No hydronephrosis. No renal calculi or focal parenchymal lesions. The kidney measures 10.3 cm in maximum dimension. LEFT KIDNEY: Normal. No hydronephrosis. No renal calculi or focal parenchymal lesions. The kidney measures 10.0 cm in maximum dimension. SPLEEN: Normal. The spleen measures 11.2 cm in maximum dimension. FREE FLUID: None. US/US abdomen comp w elastography IMPRESSION: 1. There is generalized increase in hepatic echotexture, consistent with fatty infiltration or hepatocellular disease. Please correlate clinically. No focal hepatic mass or intrahepatic biliary dilatation is seen. 2. Liver elastography: Measurements are consistent with a high probability of normal liver stiffness. 3. Technically limited ultrasound examination of the pancreas. REFERENCE: Society of Radiologists in Ultrasound Liver Stiffness Thresholds (2020): LIVER STIFFNESS THRESHOLDS: *Liver Stiffness equal or less than 1.3 m/s: High probability of being normal. *Liver Stiffness less than 1.7 m/s: In the absence of other known clinical signs, rules out compensated advanced chronic liver disease. *Liver Stiffness 1.7-2.1 m/s: Suggestive of compensated advanced chronic liver disease but need further test for confirmation. *Liver Stiffness over 2.1 m/s: Rules in compensated advanced chronic liver disease. *Liver Stiffness over 2.4 m/s: Suggestive of clinically significant portal hypertension. QUALITY OF DATA SET: *IQR/Median value equal or less than 0.15 implies a quality data set. *IQR/Median value over 0.15 implies a poor quality data set. SIGNIFICANT CHANGE FROM PRIOR EXAM: Significant change if liver stiffness measurement is 10% or greater from prior exam. OTHER CONSIDERATIONS: The stage of liver fibrosis may be overestimated in the setting of acute hepatitis, liver inflammation, elevated liver function tests, hepatic vascular congestion, obstructive cholestasis, non-fasting state, and infiltrative diseases such as amyloidosis and lymphoma. In some patients with NAFLD, the liver stiffness thresholds for compensated advanced chronic liver disease may be lower. In causes other than viral hepatitis and NAFLD, liver stiffness thresholds are not well established.
== END 2024-01-30 10:33 | disposition home or self-care (01) ==
LOC: HO.US 10:32
PROVIDERS: PCP Family Medicine; Visit Provider Surgery
DX: E66.9 Obesity, unspecified (principal); Z68.37 Body mass index [BMI] 37.0-37.9, adult; G47.30 Sleep apnea, unspecified
CPT/HCPCS: 76700; 76981

== ENCOUNTER 2024-02-20 08:02 | Outpatient (AMB) | payer OTHER, SELFPAY ==
--- NOTE | 2024-02-20 12:00 | A.OFFVIS_ITS ---
VS Expanded 02/20/24 12:09 Height 5 ft 6 in Weight 224 lb BMI 36.2 Body Fat % 47.7 Body Fat Mass 106.8 Fat Free Mass 117.2 Visceral Fat Rating 18 Body Water % 35.9 Body Water Mass 80.4 Basal Metabolic Rate/Score 1,503 Intake Visit Reasons: TV Follow Up SWL - 1ST Allergies No Known Allergies Allergy (Verified 01/14/24 10:55) HPI HPI TV Follow Up SW[facility] - 1ST: Details: Start time: 11.55am, End time: 12.15pm ?I spent 15 minutes speaking with the patient on the phone plus an additional 5 minutes reviewing and updating records for a total of 20 minutes HPI Comments Details: Overall weight loss: 2.8lbs, or 1.23%TBWL Is doing 2 Isopure Infusions (1/2 scoop in water), 3 Zone Perfect protein bars and one meal (8 forks of protein and 8 forks of salad or vegetables) Exercise: is doing stationary bike daily PFSH Medical History (Updated 01/19/24 @ 20:23 by Nba Hayes MD) Sleep apnea Surgical History (Updated 02/28/23 @ 13:03 by Marci Hopkins PA-C) Hx of adenoidectomy Hx of tonsillectomy Hx of unilateral oophorectomy History of removal of laparoscopic gastric banding device Hx of laparoscopic gastric banding Family History Mother Hypertension Diabetes High cholesterol Father Diabetes Brother Diabetes Brother No problems noted. Brother No problems noted. Brother No problems noted. Sister No problems noted. Sister No problems noted. Sister No problems noted. Son No problems noted. Daughter No problems noted. Social History Alcohol intake: never Patient Tobacco Use Status: Never used Tobacco Telehealth Telehealth Location of provider rendering services: practice address Location of patient: address on file Patient Identification confirmed using: Name, : Yes Telehealth method: voice only Patient verbally consented to treatment: Yes Patient verbally consented to billing insurance company: Yes Patient informed of any privacy concerns related to visit: Yes Minutes spent on Phone/Video with Pt.: 20 Assessment & Plan Assessment & Plan (1) Obesity: Code(s): E66.9 - Obesity, unspecified Category: Medical Qualifiers: Obesity type: due to excess calories Obesity classification: adult class 2 (BMI 35 - 39.9) Serious obesity comorbidity presence: with serious comorbidity Body mass index: BMI 37.0-37.9 Qualified Code(s): E66.01 - Morbid (severe) obesity due to excess calories; Z68.37 - Body mass index [BMI] 37.0- 37.9, adult Plan: 1. Change nutritional plan to 3 Isopure Infusions (1/2 scoop in water), 2 Zone Perfect protein bars and one meal (8 forks of protein and 8 forks of salad or vegetables) 2. Exercise: continue stationary bike daily tracking the calories for 300 calories per day daily. Goal is to burn 2000 calories per week 3. Continue to send me weight measurements weekly on Tuesdays
[2024-02-20 12:09] VITALS: BMI 36.2
== END 2024-02-20 12:16 | disposition home or self-care (01) ==
LOC: HO.HBS 08:02
PROVIDERS: PCP Family Medicine; Visit Provider Surgery
DX: E66.01 Morbid (severe) obesity due to excess calories (principal); Z68.37 Body mass index [BMI] 37.0-37.9, adult
CPT/HCPCS: 99213

== ENCOUNTER → 2024-02-20 08:02 | Outpatient (BNVA) | payer OTHER, SELFPAY | PROVIDERS: PCP Family Medicine; Visit Provider Surgery ==

== ENCOUNTER 2024-02-27 10:36 | Outpatient (AMB) | payer OTHER, SELFPAY ==
[2024-02-27 10:42] VITALS: BP 108/67; PULSE 64; O2SAT 96; BMI 35.8
--- NOTE | 2024-02-27 10:42 | A.OFFVIS_ITS ---
Vital Signs 02/27/24 10:42 Height 5 ft 6 in Weight 222 lb BMI 35.8 BP 108/67 Blood Pressure Location Rt brachial Position Sitting Pulse 64 Pulse Source Doppler Pulse Oximetry (%) 96 Oxygen Delivery Method Room Air Intake Visit Reasons: sleep apnea Allergies No Known Allergies Allergy (Verified 02/27/24 10:47) HPI HPI sleep apnea: Details: 53-year-old lady with recent diagnosis of mild obstructive sleep apnea referred management of her underlying sleep apnea symptoms. Patient states that she has had CPAP previously many years back and now would like to try using it again. She does complain of unrestful sleep and snoring. [facility] Medical History (Updated 01/19/24 @ 20:23 by Nba Hayes MD) Sleep apnea Surgical History (Updated 02/28/23 @ 13:03 by Marci Hopkins PA-C) Hx of adenoidectomy Hx of tonsillectomy Hx of unilateral oophorectomy History of removal of laparoscopic gastric banding device Hx of laparoscopic gastric banding Family History Mother Hypertension Diabetes High cholesterol Father Diabetes Brother Diabetes Brother No problems noted. Brother No problems noted. Brother No problems noted. Sister No problems noted. Sister No problems noted. Sister No problems noted. Son No problems noted. Daughter No problems noted. Social History Alcohol intake: never Patient Tobacco Use Status: Never used Tobacco Review of Systems Const Reports daytime sleepiness, Denies excessive sweating, Reports fatigue, Denies fever(s), Denies lethargy, Denies malaise, Denies night sweats, Reports snoring and Denies weight loss Eyes Denies blurry vision and Denies itchy eyes ENT Denies nasal congestion, Denies post nasal drip, Denies sinus pain, Denies sinus pressure and Denies other ( Thrush) Card Denies chest pain, Denies pedal edema, Denies dyspnea, Denies orthopnea and Denies paroxysmal nocturnal dyspnea Resp Denies cough, Denies hemoptysis, Denies excessive phlegm production, Denies dyspnea, Reports snoring and Denies wheezing GI Denies abdominal pain and Denies heartburn Musc Denies myalgias, Denies arthralgias and Denies joint swelling Skin/Breast Denies rash Neuro Denies memory loss and Denies seizure-like activity Psych Denies abnormal sleep pattern, Denies anxiety and Denies memory loss Endo Denies excessive sweating, Reports fatigue and Denies heat intolerance Jose/Lymph Denies easy bruising Aller/Immun Denies itchy eyes, Denies seasonal rhinorrhea and Denies wheezing Physical Exam Vital Signs: Last Vital Signs Pulse 64 02/27/24 10:42 BP 108/67 02/27/24 10:42 Pulse Ox 96 02/27/24 10:42 Oxygen Delivery Method Room Air 02/27/24 10:42 BMI result Body Mass Index 35.8 Const General: no acute distress and alert Nutritional Appearance: obese Orientation/consciousness: Other orientation findings ( oriented) HEENT Head: Yes atraumatic Eyes General: appearance normal, both eyes and all related structures Sclerae: sclerae normal EOM: EOMs intact bilaterally Neck Neck: Yes supple Lymphatic: no lymphadenopathy noted Resp Effort & Inspection: normal respiratory effort and no use of accessory muscles Auscultation: clear to auscultation bilaterally Cardio Rate: regular rate Rhythm: regular rhythm Heart sounds: no gallops, no murmurs and no rubs Skin General skin exam: other ( warm) Extrem General: No clubbing, No cyanosis and No edema Assessment & Plan Assessment & Plan (1) Sleep apnea: Code(s): G47.30 - Sleep apnea, unspecified Category: Medical Plan: Results of sleep study reviewed. Underlying mild obstructive sleep apnea. Will start on APAP of 6-16 cm of water. Coding Level of Care Code New Pt Level 3 (99189) Diagnoses Sleep apnea G47.30
== END 2024-02-27 10:53 | disposition home or self-care (01) ==
PROVIDERS: PCP Family Medicine; Visit Provider Internal Medicine Pulmonary Disease
DX: G47.30 Sleep apnea, unspecified (principal)
CPT/HCPCS: 99203

== ENCOUNTER → 2024-02-27 10:36 | Outpatient (BNVA) | payer OTHER, SELFPAY | PROVIDERS: PCP Family Medicine; Visit Provider Internal Medicine Pulmonary Disease | DX: G47.33 Obstructive sleep apnea (adult) (pediatric) (principal) | CPT/HCPCS: 99202 ==

== ENCOUNTER 2024-03-09 09:28 | Outpatient (REF) | payer OTHER, SELFPAY ==
--- NOTE | ~2024-03-09 | FL_ITS ---
EXAMINATION: XR FLUOROSCOPY UPPER GI WITH AIR CLINICAL INFORMATION: Preop evaluation prior to bariatric surgery COMPARISON: None TECHNIQUE: Fluoroscopic air contrast upper GI examination was performed utilizing standard techniques with thin and thick barium and effervescent granules. Numerous spot images were obtained. FINDINGS: Dual and single contrast images of the esophagus demonstrate normal caliber, contour, and mucosal pattern. No evidence of stricture, mass, or ulcerations identified. There is to and fro motion of the barium column with associated nonpropulsive tertiary contractions. A small type I hiatal hernia is present. Gastroesophageal reflux is seen up to the thoracic inlet. Dual contrast and single contrast images of the stomach demonstrated normal contour and mucosal pattern without evidence of mass, ulceration, or other abnormality. Normal-appearing areae gastricae. Contrast freely passed into the gastric antrum and duodenal bulb without delay. Single and air-contrast images of the duodenal bulb demonstrate no abnormality. The duodenal sweep has a normal appearance, course, and mucosal fold appearance. There is no malrotation. The imaged proximal jejunum has a normal fold pattern and caliber. FLUOROSCOPY TIME: 3 minutes 34 seconds Number of Spot Images: 13 Number of Cine: 8 DOSE AREA PRODUCT: 2760 uGy-m2 (microgray-meter squared) FL/FL upper GI w air IMPRESSION: 1. Esophageal dysmotility. 2. Small type I hiatal hernia. 3. Significant gastroesophageal reflux. This procedure was performed by Aryan Lyons PA-C, and supervised by Dr. Spear
== END 2024-03-09 09:29 | disposition home or self-care (01) ==
LOC: HO.XRAY 09:28
PROVIDERS: PCP Family Medicine; Visit Provider Surgery
DX: E66.9 Obesity, unspecified (principal); Z68.37 Body mass index [BMI] 37.0-37.9, adult; G47.30 Sleep apnea, unspecified
CPT/HCPCS: 74246

== ENCOUNTER → 2024-03-09 09:28 | Outpatient (BNV) | payer OTHER, SELFPAY | PROVIDERS: PCP Family Medicine; Visit Provider Physician Assistant Surgical | DX: E66.9 Obesity, unspecified (principal); Z01.818 Encounter for other preprocedural examination | CPT/HCPCS: 74246 ==

== ENCOUNTER 2024-04-02 09:40 | Outpatient (AMB) | payer OTHER, SELFPAY ==
--- NOTE | 2024-04-02 13:03 | A.OFFVIS_ITS ---
VS Expanded 04/02/24 13:09 Height 5 ft 6 in Weight 210 lb 8 oz BMI 34.0 Body Fat % 44.4 Body Fat Mass 93.5 Fat Free Mass 117.2 Visceral Fat Rating 16 Body Water % 38.1 Body Water Mass 80.3 Basal Metabolic Rate/Score 1,503 Intake Visit Reasons: TV Pre Op LSG 04/08/24 Allergies No Known Allergies Allergy (Verified 04/02/24 13:03) Medication List - Last Reconciled 04/02/24 by Nba Hayes MD cholecalciferol (vitamin D3) 125 mcg PO DAILY ondansetron 4 mg PO Q12H pantoprazole 40 mg PO DAILY polyethylene glycol 3350 17 grams PO DAILY sucralfate 10 mL PO BID HPI HPI TV Pre Op LSG 04/08/24: Details: Start time: 1pm, End time: 1.30pm ?I spent 25 minutes speaking with the patient on the phone plus an additional 5 minutes reviewing and updating records for a total of 30 minutes HPI Comments Details: Overall weight loss: 2.8lbs, or 1.23%TBWL Is doing 2 Isopure Infusions (1/2 scoop in water), 3 Zone Perfect protein bars and one meal (8 forks of protein and 8 forks of salad or vegetables) Exercise: is doing stationary bike daily [facility] Medical History (Updated 01/19/24 @ 20:23 by Nba Hayes MD) Sleep apnea Surgical History (Updated 02/28/23 @ 13:03 by Marci Hopkins PA-C) Hx of adenoidectomy Hx of tonsillectomy Hx of unilateral oophorectomy History of removal of laparoscopic gastric banding device Hx of laparoscopic gastric banding Family History Mother Hypertension Diabetes High cholesterol Father Diabetes Brother Diabetes Brother No problems noted. Brother No problems noted. Brother No problems noted. Sister No problems noted. Sister No problems noted. Sister No problems noted. Son No problems noted. Daughter No problems noted. Social History Alcohol intake: never Patient Tobacco Use Status: Never used Tobacco Physical Exam Vital Signs: BMI result Body Mass Index 34.0 Telehealth Telehealth Telehealth Platform: Telephone Location of provider rendering services: practice address Location of patient: address on file Patient Identification confirmed using: Name, : Yes Telehealth method: voice only Patient verbally consented to treatment: Yes Patient verbally consented to billing insurance company: Yes Patient informed of any privacy concerns related to visit: Yes Minutes spent on Phone/Video with Pt.: 30 Assessment & Plan Assessment & Plan (1) Obesity: Code(s): E66.9 - Obesity, unspecified Category: Medical Qualifiers: Obesity type: due to excess calories Obesity classification: adult class 2 (BMI 35 - 39.9) Serious obesity comorbidity presence: with serious comorbidity Body mass index: BMI 37.0-37.9 Qualified Code(s): E66.01 - Morbid (severe) obesity due to excess calories; Z68.37 - Body mass index [BMI] 37.0- 37.9, adult Plan: 1. Plan for lap sleeve gastrectomy including upper GI endoscopy. All tests has been completed and reviewed and the patient is cleared for the surgery. ?If diaphragmatic or ventral hernias are present at time of surgery, these will be repaired laparoscopically as well. Risks and complications were discussed in detail including possible conversion to an open procedure, anastomotic leak, bleeding requiring transfusion, small bowel obstruction, , DVT and pulmonary embolism, cardiac, or pulmonary complications, as salvage determiner complications such as anastomotic ulcer, insufficient weight loss and vitamin deficiencies. I emphasized the importance of close follow-up, adherence to instructions and good communication. So far she has proven to be an excellent communicator and very compliant with all our directions accomplishing a great weight loss. I believe that she is an excellent candidate and she is ready. 2. Preop prescriptions were provided and explained the purpose of each one. Need to be purchased preop. Start Pantoprazole now as you get it from the pharmacy, 1 pill per day. Sucralfate and Zofran are for after surgery as needed. 3. Bowel prep: please do 7 packets ?of Miralax mixing each one with a an 8oz glass of water, crystal light, gatorade zero, or propel ?on 04/06/24 and the same amount on 04/07/24. The Miralax you begin with one packet at a time in 8oz water or crystal light, gatorade zero, or propel ?as early in the day as you can and you do them back to back until you finish them. Continue the protein shakes during? the bowel prep. 4. Needs to purchase 1oz medicine cups . 5. Needs to purchase Children's liquid Tylenol for postop pain control. 6. Avoid aspirin, motrin, Advil, Aleve, Ibuprofen, Naproxyn. Tylenol is OK. 7. She needs to purchase the Celebrate 4:1 protein shakes from the hospital's gift shop. 8. Will do basic preop blood work-up any day TOMORROW 04/03/24 fasting for 12 hours and is scheduled to see the Anesthesiologist prior to the day of surgery. 9. mportance of adherence to postop folllow-up and recommendations was underscored and she understands that. 10. Stop food and bars as of today 04/02/24 and continue with 3 Isopure Infusions protein shakes (HALF scoop EACH in 8oz water) at 7am-9am, 10am-12pm an 1pm-3pm and TWO more Isopure Infusions protein shakes with ONE scoop EACHin 8oz of water at 4pm-6pm and 7pm-9pm 11. No soups, broths or V8 12. The patient's?medical?history has been reviewed and they are considered low risk for post op DVT and therefore DVT prophylaxis is not considered necessary. Travel after surgery was reviewed. The patient has not disclosed any travel plans during the first 30 days after surgery and they have been advised that within the first 30 days after surgery any bus, plane, train or car travel over 2 hours in duration is contraindicated due to the possibility of developing blood clots from immobility. Any travel, needs to include periods of ambulation of 10 minutes in duration every 2 hours.? Patient was instructed to discuss any plans for travel during this period with their bariatric surgeon.? 13. Use your CPAP daily and bring it to the hospital with your mask 14. Please take at the day of surgery the following medications: NONE 15. Stop any control pills and don't use them for one month after surgery 16. Absolutely no smoking or vaping, or marijuana until the surgery and for at least the first 4 weeks. Only nicotine patches are allowed. 17. Send me weight measurements on and then on the day of surgery before you go to the hospital. 18. Avoid any steroids by mouth for any reason. Let me know if someone prescribes them to you 19. These instructions supersede anything else you read in the handbook, anything you watched in videos or classes or you were told by any other provider. If there is any conflict, you follow the above instructions and nothing else. Orders: Orders Comprehensive Met. Panel Today E66.01 - Morbid (severe) obesity due to excess calories, Z68.34 - Body mass index [BMI] 34.0-34.9, adult, Z68.37 - Body mass index [BMI] 37.0-37.9, adult Vitamin A Today E66.01 - Morbid (severe) obesity due to excess calories, Z68.34 - Body mass index [BMI] 34.0-34.9, adult, Z68.37 - Body mass index [BMI] 37.0- 37.9, adult Hemoglobin A1c Today E66.01 - Morbid (severe) obesity due to excess calories, Z68.34 - Body mass index [BMI] 34.0-34.9, adult, Z68.37 - Body mass index [BMI] 37.0-37.9, adult Prothrombin Time INR Today E66.01 - Morbid (severe) obesity due to excess calories, Z68.34 - Body mass index [BMI] 34.0-34.9, adult, Z68.37 - Body mass index [BMI] 37.0-37.9, adult Complete Blood Count Auto Diff Today E66.01 - Morbid (severe) obesity due to excess calories, Z68.34 - Body mass index [BMI] 34.0-34.9, adult, Z68.37 - Body mass index [BMI] 37.0-37.9, adult IRON PROFILE Today E66.01 - Morbid (severe) obesity due to excess calories, Z68.34 - Body mass index [BMI] 34.0-34.9, adult, Z68.37 - Body mass index [BMI] 37.0-37.9, adult Insulin Today E66.01 - Morbid (severe) obesity due to excess calories, Z68.34 - Body mass index [BMI] 34.0-34.9, adult, Z68.37 - Body mass index [BMI] 37.0- 37.9, adult TSH reflex Free T4 Today E66.01 - Morbid (severe) obesity due to excess calories, Z68.34 - Body mass index [BMI] 34.0-34.9, adult, Z68.37 - Body mass index [BMI] 37.0-37.9, adult Vitamin B1 Today E66.01 - Morbid (severe) obesity due to excess calories, Z68.34 - Body mass index [BMI] 34.0-34.9, adult, Z68.37 - Body mass index [BMI] 37.0-37.9, adult Lipid Panel Today E66.01 - Morbid (severe) obesity due to excess calories, Z68.34 - Body mass index [BMI] 34.0-34.9, adult, Z68.37 - Body mass index [BMI] 37.0-37.9, adult Type and Screen Today E66.01 - Morbid (severe) obesity due to excess calories, Z68.34 - Body mass index [BMI] 34.0-34.9, adult, Z68.37 - Body mass index [BMI] 37.0-37.9, adult Vitamin B12 Today E66.01 - Morbid (severe) obesity due to excess calories, Z68.34 - Body mass index [BMI] 34.0-34.9, adult, Z68.37 - Body mass index [BMI] 37.0-37.9, adult C Reactive Protein Today E66.01 - Morbid (severe) obesity due to excess calories, Z68.34 - Body mass index [BMI] 34.0-34.9, adult, Z68.37 - Body mass index [BMI] 37.0-37.9, adult Partial Thromboplastin Time Today E66.01 - Morbid (severe) obesity due to excess calories, Z68.34 - Body mass index [BMI] 34.0-34.9, adult, Z68.37 - Body mass index [BMI] 37.0-37.9, adult Vitamin D 25-OH Total Today E66.01 - Morbid (severe) obesity due to excess calories, Z68.34 - Body mass index [BMI] 34.0-34.9, adult, Z68.37 - Body mass index [BMI] 37.0-37.9, adult Ferritin Today E66.01 - Morbid (severe) obesity due to excess calories, Z68.34 - Body mass index [BMI] 34.0-34.9, adult, Z68.37 - Body mass index [BMI] 37.0- 37.9, adult Zinc Today E66.01 - Morbid (severe) obesity due to excess calories, Z68.34 - Body mass index [BMI] 34.0-34.9, adult, Z68.37 - Body mass index [BMI] 37.0- 37.9, adult Medications: New ondansetron Only take one every 12 hours as needed if you have nausea 4 mg PO Q12H 20 tabs 0RF nausea and vomiting R11.0 - Nausea pantoprazole 40 mg PO DAILY 90 tabs 2RF K21.9 - Gastro-esophageal reflux disease without esophagitis sucralfate 10 mL PO BID 600 mL 2RF K21.9 - Gastro-esophageal reflux disease without esophagitis polyethylene glycol 3350 Mix each measuring cup with 8oz of water, Crystal light, or Gatorade zero, or Propel and do 7 measuring cups on 04/06/24 and another 7 measuring cups on 04/07/24 17 grams PO DAILY 238 grams 0RF Z01.818 - Encounter for other preprocedural examination
[2024-04-02 13:09] VITALS: BMI 34.0
== END 2024-04-02 16:32 | disposition home or self-care (01) ==
LOC: HO.HBS 09:40
PROVIDERS: PCP Family Medicine; Visit Provider Surgery
DX: E66.01 Morbid (severe) obesity due to excess calories (principal); Z68.37 Body mass index [BMI] 37.0-37.9, adult
CPT/HCPCS: 99214

== ENCOUNTER → 2024-04-02 09:40 | Outpatient (BNVA) | payer OTHER, SELFPAY | PROVIDERS: PCP Family Medicine; Visit Provider Surgery ==

== ENCOUNTER 2024-04-03 | Outpatient (REF) | payer OTHER, SELFPAY ==
[2024-04-03 09:28] LABS: MANUAL DIFF FLAG NO
[2024-04-03 09:54] LABS: Basophils Percent Auto 0.5 % (0-2); Eosinophils Absolute Auto 0.3 X10*3/uL (0.0-0.4); Eosinophils Percent Auto 5.3 % (0-4); Hematocrit 39.9 % (37.0-47.0); Hemoglobin 13.6 g/dl (12.0-16.0); Imm Gran Abs Auto 0.01 X10*3/uL (0.00-0.03); Imm Gran Pct Auto 0.2 % (0.0-0.4); Lymphocytes Absolute Auto 2.3 X10*3/uL (1.2-4.9); Lymphocytes Percent Auto 36.2 % (20-40); Mean Corpuscular HGB Conc 34.1 g/dl (31.0-35.0); Mean Corpuscular Hemoglobin 31.6 pg (27.0-33.0); Mean Corpuscular Volume 92.6 fL (80.0-98.0); Mean Platelet Volume 11.3 fL (9.4-12.3); Monocytes Absolute Auto 0.6 X10*3/uL (0.1-1.2); Monocytes Percent Auto 8.8 % (2-11); Neutrophils Absolute Auto 3.1 x10*3/uL (2.0-8.3); Platelet Count 252 X10*3/uL (160-400); Red Blood Count 4.31 X10*6/uL (4.20-5.50); Red Cell Distribution Width 12.4 % (11.0-16.0); White Blood Count 6.2 X10*3/uL (4.8-10.8)
[2024-04-03 10:00] LABS: Estimated Average Glucose 105 mg/dL; Hemoglobin A1c % 5.3 % (<6.0); Prothrombin Time 11.8 SEC (11.1-13.3)
[2024-04-03 10:02] LABS: Partial Thromboplastin Time 33.9 SEC (26.0-36.8)
[2024-04-03 10:41] LABS: Alanine Aminotransferase 16 U/L (0-31); Alkaline Phosphatase 55 U/L (39-117); Anion Gap 10 (12-20); Aspartate Amino Transferase 19 U/L (5-31); Bilirubin Total 0.5 mg/dL (0.0-1.0); Blood Urea Nitrogen 12 mg/dL (9-16); C Reactive Protein 0.25 mg/dL (< or = 0.50); Calcium 9.5 mg/dL (8.4-10.2); Carbon Dioxide 28 mmol/L (22-29); Chloride 110 mmol/L (96-108); Cholesterol 225 mg/dL (<200); Estimated Glomerular Filt Rate > 60; Glucose Random 97 mg/dL (60-115); HDL Cholesterol 52 mg/dL (>40); Iron 60 mcg/dL (30-160); LDL Cholesterol Calculated 150 mg/dL (<100); Percent Iron Saturation 22 % (15-50); Potassium 3.2 mmol/L (3.3-5.1); Sodium 145 mmol/L (135-145); Total Iron Binding Capacity 269 mcg/dL (228-428); Total Protein 6.8 g/dL (6.5-8.0); Triglycerides 116 mg/dL (<150); Unsaturated Iron Binding 209 ug/dL
[2024-04-03 10:50] LABS: Ferritin 56 ng/mL (10-250); Insulin 8 uU/mL (2-29); TSH reflex Free T4 3.44 uIU/mL (0.32-4.0); Vitamin D 25-OH Total 48.5 ng/mL (>30)
[2024-04-03 10:54] LABS: Vitamin B12 875 pg/mL (200-900)
[2024-04-06 12:24] LABS: Zinc 93 mcg/dL (60-130)
[2024-04-07 01:24] LABS: Vitamin A 43 mcg/dL (38-98)
[2024-04-08 15:58] LABS: Vitamin B1 12 nmol/L (8-30)
== END 2024-04-06 00:01 | disposition home or self-care (01) ==
LOC: HO.PAT
PROVIDERS: PCP Family Medicine; Visit Provider Surgery
DX: E66.01 Morbid (severe) obesity due to excess calories (principal); Z68.37 Body mass index [BMI] 37.0-37.9, adult
CPT/HCPCS: 36415; 80053; 80061; 82306; 82607; 82728; 83036; 83525; 83540; 84425; 84443; 84590; 84630; 85025; 85610; 85730; 86140; 86850; 86900; 86901